=== PATIENT | male | born 1970 | race Caucasian/White ===

== ENCOUNTER 2019-03-21 16:03 | Emergency (ER) | payer BC, OTHER ==
[2019-03-21 16:09] VITALS: BP 149/93; PULSE 84; TEMP 98.2; BMI 42.7
--- NOTE | 2019-03-21 16:09 | PDOC ---
Rapid Medical Evaluation Time Seen by Provider: 03/21/19 16:06 Medical Evaluation: Allergies Allergy/AdvReac Type Severity Reaction Status Date / Time No Known Allergies Allergy Verified 08/28/13 10:05 03/21/19 16:06 I have performed a brief in-person evaluation of this patient. The patient presents with a chief complaint of: lightheaded and subjective fever Pertinent physical exam findings: VSS. AF. gait steady. left great ingrown toenail I have ordered the following: EKG The patient will proceed to the ED for further evaluation. 03/21/19 16:09 Discharge Disposition - Diagnosis Lightheaded - Referrals - Patient Instructions - Post Discharge Activity
--- NOTE | 2019-03-21 16:55 | PDOC ---
History of Present Illness - General Chief Complaint: Lightheaded Stated Complaint: HIGH FEVER Time Seen by Provider: 03/21/19 16:06 - History of Present Illness Initial Comments: 03/21/19 17:36 HPI: 48 y/o M with hx of left tib/marcin fx and left big toe ingrown nail presenting after a couple hours of feeling "hot and warm" followed by lightheadedness/ dizziness. He was sitting at his desk at work with the AC on high and felt the odd sensation of warmth. This has never happened before. He presented because he is concerned that his hangnail may be infected. He has a elevated motorman appt tomorrow for eval but presented earlier due to the concern. Patient denies CARCAMO, vision change, palpitations, cough, N/V, F,C, CP, SOB, urinary complaints, hematuria, abdominal pain, diarrhea, constipation, weakness , sensory changes. He is otherwise in his normal state of health and is tolerating PO PMHx: as noted above ROS: as noted SHx: Denies Etoh, IVDA, tobacco use Allergies: NKDA Past History - Past Medical History Allergies/Adverse Reactions: Allergies Allergy/AdvReac Type Severity Reaction Status Date / Time No Known Allergies Allergy Verified 03/21/19 16:10 Home Medications: Ambulatory Orders No Home Medications 0 dose .ROUTE UTDICT 08/28/13 COPD: No - Suicide/Smoking/Psychosocial Hx Smoking History: Never smoked Hx Alcohol Use: No Drug/Substance Use Hx: No Review of Systems - Review of Systems Comments:: 03/21/19 17:41 GENERAL/CONSTITUTIONAL: No chills. No weakness. HEAD, EYES, EARS, NOSE AND THROAT: No change in vision. No ear pain or discharge. No sore throat. CARDIOVASCULAR: No chest pain or shortness of breath RESPIRATORY: No cough, wheezing, or hemoptysis. GASTROINTESTINAL: No nausea, vomiting, diarrhea or constipation. GENITOURINARY: No dysuria, frequency, or change in urination. MUSCULOSKELETAL: No joint or muscle swelling or pain. No neck or back pain. SKIN: No rash NEUROLOGIC: No headache, vertigo, loss of consciousness, or change in strength/ sensation. ENDOCRINE: No increased thirst. No abnormal weight change HEMATOLOGIC/LYMPHATIC: No anemia, easy bleeding, or history of blood clots. ALLERGIC/IMMUNOLOGIC: No hives or skin allergy. *Physical Exam - Vital Signs Last Vital Signs Temp Pulse Resp BP Pulse Ox 98.2 F 84 16 149/93 98 03/21/19 16:06 03/21/19 16:06 03/21/19 16:06 03/21/19 16:06 03/21/19 16:06 - Physical Exam Comments: 03/21/19 17:41 GENERAL: Awake, alert, and fully oriented, in no acute distress HEAD: No signs of trauma, normocephalic, atraumatic EYES: PERRLA, EOMI, sclera anicteric, conjunctiva clear ENT: Auricles normal inspection, hearing grossly normal, nares patent, oropharynx clear without exudates. Moist mucosa NECK: Normal ROM, supple, no lymphadenopathy, JVD, or masses LUNGS: No distress, speaks full sentences, clear to auscultation bilaterally HEART: Regular rate and rhythm, normal S1 and S2, no murmurs, rubs or gallops, peripheral pulses normal and equal bilaterally. ABDOMEN: Soft, nontender, normoactive bowel sounds. No guarding, no rebound. No masses EXTREMITIES : Normal inspection, Normal range of motion, no edema. No clubbing or cyanosis. Left foot with big tow ingrown nail on the lateral aspect with no erythema, drainage, bleeding, purulence, foul odor, warmth NEUROLOGICAL: Cranial nerves II through XII grossly intact. Normal speech, normal gait, no focal sensorimotor deficits SKIN: Warm, Dry, normal turgor, no rashes or lesions noted ED Treatment Course - LABORATORY CBC & Chemistry Diagram: 03/21/19 17:30 03/21/19 17:30 Medical Decision Making - Medical Decision Making 03/21/19 17:43 48 y/o M with hx of left tib/marcin fx and left big toe ingrown nail presenting after a couple hours of feeling "hot and warm" followed by lightheadedness/ dizziness with concern for hangnail infection. Vitals wnl. PE without any left big toe erythema, warmth, drainage, skin breakdown. Will rule out cardiac causes and assess for infxn and metabolic abnormalities -CBC, CMP, cardiac prof, Mg -EKG 03/21/19 18:47 labs unremarkable; no leukocytosis and no left shift Will DC home and recommend f/u with podiatry tomorrow *DC/Admit/Observation/Transfer Diagnosis at time of Disposition: Lightheaded, Ingrown left big toenail - Discharge Dispostion Disposition: HOME Condition at time of disposition: Stable Decision to Admit order: No - Referrals Referrals: Eduin Escobar MD [Primary Care Provider] - - Patient Instructions Printed Discharge Instructions: DI for Ingrown Toenail Additional Instructions: Additional Instructions: Return to the ED if you have any new concerns or symptoms including chest pain, shortness of breath, seizures, fainting, drainage from ingrown nail. Please ensure adequate hydration Please followup with your elevated motorman as scheduled - Post Discharge Activity
[2019-03-21 17:40] LABS: BASO % 0.5 % (0-2.0); EOS % 0.9 % (0-4.5); HEMATOCRIT 46.1 % (35.4-49); HEMOGLOBIN 15.5 GM/dL (11.7-16.9); LYMPH % 19.8 % (8-40); MCH 28.6 pg (25.7-33.7); MCHC 33.7 g/dl (32.0-35.9); MEAN PLT VOLUME 7.6 fl (7.5-11.1); MONO % 7.6 % (3.8-10.2); NEUT % 71.2 % (42.8-82.8); PLATELET COUNT 252 K/MM3 (134-434); RBC 5.42 M/mm3 (4.00-5.60); RDW 14.7 % (11.9-15.9); WHITE BLOOD COUNT 8.9 K/mm3 (4.0-10.0)
--- NOTE | 2019-03-21 18:31 | PDOC ---
Documentation entered by Talon Pablo SCRIBE, acting as scribe for Jeimy Smith MD. Jeimy Smith MD: This documentation has been prepared by the Samy lewis Elijah, SCRIBE, under my direction and personally reviewed by me in its entirety. I confirm that the documentation accurately reflects all work, treatment, procedures, and medical decision making performed by me. Attending Attestation - Resident Resident Name: MosesSunni - ED Attending Attestation I have performed the following: I have examined & evaluated the patient, The case was reviewed & discussed with the resident, I agree w/resident's findings & plan - HPI HPI: 03/21/19 17:48 Patient is a 48 year old male with a significant past medical history of left tib/marcin fx and left big toe ingrown nail who presents to the ED with lightheadedness beginning earlier today. Patient was in front of the A/C but still felt warm. Patient was worried this had to do with a hangnail being infected prompting the visit to the ED. Allergies : NKA Dr. Escobar - Physicial Exam PE: 03/21/19 17:57 GENERAL: Awake, alert, and fully oriented, in no acute distress NECK: Normal ROM, supple LUNGS: No distress, speaks full sentences, clear to auscultation bilaterally HEART: Regular rate and rhythm, normal S1 and S2 ABDOMEN: Soft, nontender EXTREMITIES : Left foot with big tow ingrown nail on the lateral aspect with no erythema, drainage, bleeding, purulence, foul odor, warmth NEUROLOGICAL: Cranial nerves II through XII grossly intact. Normal speech, normal gait, no focal sensorimotor deficits SKIN: as above - Medical Decision Making 03/21/19 18:27 48 yo M presenting with a complaint of feeling unwell He thought he possibly had a fever??? (did not take temp) Pt has an appointment with podiatry tomorrow No chest pain 03/21/19 18:28 Labs pending Will plan to d/c home Follow up with Podiatry tomorrow
[2019-03-21 18:46] LABS: ALBUMIN 4.7 g/dl (3.4-5.0); ALK PHOS 123 U/L (45-117); ANION GAP 12 MMOL/L (8-16); BILIRUBIN,TOTAL 0.4 mg/dL (0.2-1); BLOOD UREA NITROGEN 19.1 mg/dL (7-18); CALCIUM 9.7 mg/dL (8.5-10.1); CHLORIDE 105 mmol/L (98-107); CO2 22 mmol/L (21-32); CREATININE 1.1 mg/dL (0.55-1.3); GLUCOSE,RANDOM 86 mg/dL (74-106); MAGNESIUM 2.5 mg/dL (1.8-2.4); POTASSIUM 3.9 mmol/L (3.5-5.1); SGOT/AST 30 U/L (15-37); SGPT/ALT 50 U/L (13-61); SODIUM 138 mmol/L (136-145); TOT PROT 8.4 g/dl (6.4-8.2)
--- NOTE | 2019-03-22 13:56 | EKG ---
Test Reason : Blood Pressure : / mmHG Vent. Rate : 078 BPM Atrial Rate : 078 BPM P-R Int : 200 ms QRS Dur : 100 ms QT Int : 386 ms P-R-T Axes : 028 003 036 degrees QTc Int : 440 ms NORMAL SINUS RHYTHM INCOMPLETE RIGHT BUNDLE BRANCH BLOCK BORDERLINE ECG WHEN COMPARED WITH ECG OF 03-SEP-2001 09:49, NO SIGNIFICANT CHANGE WAS FOUND Confirmed by QASIM SAHU MD ([id number]) on 03/22/2019 1:56:12 PM Referred By: Confirmed By:QASIM SAHU MD
== END 2019-03-21 19:00 | disposition home or self-care (01) ==
LOC: JER 16:03
DX: R42 Dizziness and giddiness (principal); L60.0 Ingrowing nail
CPT/HCPCS: 36415; 80053; 82550; 83735; 84484; 85025; 93005; 93010; 99282-25